=== PATIENT | male | born 1995 | race Caucasian/White ===

== ENCOUNTER 2019-03-06 12:02 | Emergency (ER) | payer MEDICAID, OTHER ==
[~2019-03-06] VITALS: Ht 182.9 cm; Wt 92.6 kg
[2019-03-06 12:09] VITALS: BP 151/60; PULSE 96; RESP 16; Ht 182.9 cm; Wt 92.6 kg
[2019-03-06] MEDS ORDERED: IBUPROFEN 800 MG TAB PO ONE (13:30)
[2019-03-06] MEDS ORDERED: CYCL10TA7 PO (13:44)
[2019-03-06] MEDS ORDERED: NAPR-985 PO (13:44)
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
== END 2019-03-06 13:59 | disposition home or self-care (01) ==
LOC: FTE 12:02
DX: S13.4XXA Sprain of ligaments of cervical spine, initial encounter (principal); V49.59XA Passenger injured in collision with other motor vehicles in traffic accident, initial encounter
CPT/HCPCS: 72040; 72072; Z7610